=== PATIENT | male | born 1940 | race Caucasian/White ===

== ENCOUNTER 2024-07-20 20:08 | Outpatient (CLI) | payer OTHER, SELFPAY | END 2024-07-20 20:09 | disposition home or self-care (01) | LOC: SLEEP 20:13 | PROVIDERS: Visit Provider Internal Medicine | DX: G47.33 Obstructive sleep apnea (adult) (pediatric) (principal); I49.9 Cardiac arrhythmia, unspecified | CPT/HCPCS: 95811 ==